=== PATIENT | female | born 1975 | race Caucasian/White ===

== ENCOUNTER 2016-12-02 10:00 | Emergency (ER) | payer BC, OTHER ==
[2016-12-02 10:03] VITALS: BP 117/67; PULSE 60; RESP 20; TEMP 97.7; O2SAT 96
--- NOTE | 2016-12-02 10:39 | PD ---
HPI Chief Complaint: Exposure to Blood/Body Fluids Time Seen by Provider: 10:39 Travel History International Travel<30 days: No Contact w/Intl Traveler<30days: No Traveled to known affect area: No History of Present Illness HPI 41-year-old female presents from the OR with a needlestick to the left index finger from a suture needle. 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 Patient status in terms of hepatitis B, C, or HIV is unknown at this time. Patient states no bleeding from the wound site in the left index finger. She did wash her hands thoroughly after the incident. She is up-to-date on her immunizations. This is a workplace injury. PFSH Past Medical History ?: Not Past Surgical History Hysterectomy: Yes Social History Alcohol Use: Yes Tobacco Use: No Substance Use: No Review of Systems Except as stated in HPI: all other systems reviewed are Neg General / Constitutional: No: Fever Eyes: No: Visual changes HENT: No: Headaches Cardiovascular: No: Chest Pain or Discomfort Respiratory: No: Shortness of Breath Gastrointestinal: No: Abdominal Pain Genitourinary: No: Dysuria Musculoskeletal: No: Pain Skin: No Rash Neurologic: No: Weakness Psychiatric: No: Depression Endocrine: No: Polydipsia Hematologic/Lymphatic: No: Easy Bruising Physical Exam Narrative GENERAL: Patient has no acute distress SKIN: Warm and dry. Normal color. Normal turgor. No visible wound to the left index finger. HEAD: Atraumatic. Normocephalic. EYES: Pupils equal and round. No scleral icterus. No injection or drainage. ENT: No nasal bleeding or discharge. Mucous membranes pink and moist. NECK: Trachea midline. No JVD. CARDIOVASCULAR: Regular rate and rhythm. RESPIRATORY: No accessory muscle use. Clear to auscultation. Breath sounds equal bilaterally. GASTROINTESTINAL: Abdomen soft, non-tender, nondistended. Hepatic and splenic margins not palpable. MUSCULOSKELETAL: Extremities without clubbing, cyanosis, or edema. No obvious deformities. NEUROLOGICAL: Awake and alert. No obvious cranial nerve deficits. Motor grossly within normal limits. Five out of 5 muscle strength in the arms and legs. Normal speech. PSYCHIATRIC: Appropriate mood and affect; insight and judgment normal. Data Data Last Documented VS Vital Signs Date Time Temp Pulse Resp B/P Pulse Ox O2 Delivery O2 Flow Rate FiO2 12/02/16 10:03 97.7 60 20 117/67 96 Room Air MDM Medical Decision Making Medical Screen Exam Complete: Yes Emergency Medical Condition: Yes Differential Diagnosis Workplace injury. Needle stick. Possible Exposure to blood-borne pathogen. Narrative Course Patient is medically stable at time of exam. Based on the patient's history and physical do not feel PEP is warranted. Labs ordered per her stick protocol. Worker's Comp. paperwork is completed. Patient is to follow with employee med as discussed. Diagnosis Primary Impression: Needle stick injury of finger of left hand Qualified Code: S61.239A - Needle stick injury of finger of left hand, initial encounter Additional Impression: Exposure to blood Referrals: Employ Med Patient Instructions: General Instructions Additional Instructions: Based on the patient's history and physical do not feel PEP is warranted. Labs ordered per her stick protocol. Worker's Comp. paperwork is completed. Patient is to follow with employee med as discussed. Med/Other Pt SpecificInfo: No Meds Exist/No RX given Disposition: DISCHARGE HOME Condition: Stable Kishor Oleary Dec 02, 2016 10:39
[2016-12-03 10:55] LABS: HEPATITIS B SURFACE ANTIBODY 15.4 mIU/mL
== END 2016-12-02 11:17 | disposition home or self-care (01) ==
LOC: NEPB 10:00
DX: S61.231A Puncture wound without foreign body of left index finger without damage to nail, initial encounter (principal); W46.1XXA Contact with contaminated hypodermic needle, initial encounter; Y93.F9 Activity, other caregiving; Y92.234 Operating room of hospital as the place of occurrence of the external cause; Y99.0 Civilian activity done for income or pay
CPT/HCPCS: 86317; 86703; 86803; 99283